=== PATIENT | female | born 1980 | race Caucasian/White ===

== ENCOUNTER 2017-03-27 12:44 | Observation (INO) | payer BC ==
[~2017-03-27] VITALS: Ht 167.6 cm; Wt 105.9 kg
[2017-03-27] MEDS ORDERED: BACTRIM 400-801 TAB PO (15:03)
[2017-03-27] MEDS ORDERED: HYDROCODON-ACE1 EAC7 PO (15:04)
[2017-03-27 15:05] VITALS: BP 107/74; Ht 167.6 cm; Wt 105.9 kg
--- NOTE | 2017-03-27 15:26 | NUR ---
PT AOX4 RESP EVEN AND NONLABORED PT C/O PAIN ON RIGHT FLANK AND ABD AT THIS TIME. SRX2 BED AT LOWEST SETTING CALL LIGHT WITHIN REACH WILL CONTINUE TO MONITOR
--- NOTE | 2017-03-27 16:03 | NUR ---
IV ACCESS-20 GAUGE INSERTED IN RIGHT HAND FOR ACCESS. KARO CORNEJO RN
[2017-03-27 16:37] LABS: BASOPHILS 0.1 % (0-2); EOSINOPHILS 0.1 % (0-7); IMMATURE GRANULOCYTES 0.2 % (0-5); LYMPHOCYTES 22.9 % (15-50); MCH 31.3 pg (26.0-34.0); MCHC 34.9 g/dL (31.0-37.0); MCV 89.6 fL (80.0-100.0); MEAN PLATELET VOLUME 9.9 fL (7.4-10.4); MONOCYTES 8.5 % (2-11); NEUTROPHILS 68.2 % (40-80); PLATELET COUNT 284 10x3/uL (130-400); RDW 12.1 % (11.5-14.5); WBC 11.4 10x3/uL (4.8-10.8)
[2017-03-27 16:58] LABS: ALBUMIN 3.9 g/dL (3.4-5.0); ANION GAP 16.5 mmol/L (8-16); BILIRUBIN - TOTAL 0.82 mg/dL (0.2-1.3); CALCIUM 9.1 mg/dL (8.5-10.1); CARBON DIOXIDE 22.5 mmol/L (21.0-32.0); CREATININE - SERUM 1.4 mg/dL (0.6-1.3); PROTEIN - SERUM 7.1 g/dL (6.4-8.2)
[2017-03-27 19:28] LABS: HCG SERUM NEGATIVE (NEGATIVE)
--- NOTE | 2017-03-27 19:28 | NUR ---
TAKEN TO OR VIA BED BY SURGERY STAFF
--- NOTE | 2017-03-27 21:05 | NUR ---
PT RETURNED TO ROOM, NO DISTRESS NOTED, FAMILY AT BEDSIDE, CL IN REACH
--- NOTE | 2017-03-27 21:21 | NUR ---
PT REFUSES SCHEDULED MEDS DUE TO BEING DISCHARGED, PRESCRIPTIONS GIVEN BY
--- NOTE | 2017-03-27 21:30 | NUR ---
PT UP TO RESTROOM TO URINATE WITH NO PROBLEMS, URINE RED TINGED, PT DENIES ANY DISCOMFORT, FALL PRECAUTIONS IN PLACE, CL IN REACH
--- NOTE | 2017-03-27 22:02 | NUR ---
CONTACTED FOR DISCHARGE ORDERS, AWAITING RETURN CALL
--- NOTE | 2017-03-27 22:12 | NUR ---
DR LEMON RETURNED CALL, STATED HE WOULD ENTER DC ORDERS
--- NOTE | 2017-03-27 22:32 | NUR ---
IV DC'D WITH CATH INTACT, NO BLEEDING NOTED, PT CHANGED INTO PERSONAL CLOTHING, TAKEN TO PRIVATE VEHICLE BY FURNITURE UPHOLSTERY MECHANIC VIA WHEELCHAIR WITH NO DISTRESS NOTED, ACCOMPANIED BY SPOUSE, PERSONAL BELONGINGS WITH PATIENT
--- NOTE | 2017-03-28 11:39 | OP ---
PATIENT NAME: DANIELLE MOORE MEDICAL RECORD: [id number] LOCATION:[id number] ADMISSION DATE:03/27/17 SURGEON: ROJELIO LEMON MD DATE OF OPERATION: 03/27/2017 SURGEON: Rojelio Lemon MD. ANESTHESIA: TIVA by Yobany Espinosa CRNA PREOPERATIVE DIAGNOSES: Right distal ureteral stone, 4 mm. POSTOPERATIVE DIAGNOSIS: Right distal ureteral stone, 4 mm. FINDINGS: Radiodense right distal ureteral stone, 4 mm. PROCEDURES: Cystoscopy, right ureteroscopy and stone extraction, right ureteral stent insertion, 5-Ukrainian x 24 cm with string attached. SPECIMENS: Right distal ureteral stone. ESTIMATED BLOOD LOSS: None. COMPLICATIONS: None. CLINICAL HISTORY: This is a 36-year-old female, who has never had any kidney stones before. Her family history is positive for kidney stones in her father. For the past 4 days, she has had right flank pain radiating to the right lower quadrant and nausea and vomiting. She does not have any fever. She went to the Emergency Room today and she had a CT scan. This showed a 4 mm stone in the right distal ureter with proximal hydroureteronephrosis. There is also a nonobstructing right 3 mm renal stone. There are some punctate left renal stones also. She comes now to have the right distal ureteral stone removed. The right renal stone which is 3 mm in size may not cause her any trouble for some time and if it does pass, the 3 mm stone should pass on fairly easily. She was already given Flomax and [place] in the Emergency Room. I do not need to give her any further medications. We gave her Ancef 2 grams IV design center consultant to the OR. She is 5 feet 6 inches in height and we are going to use a stent at 24 cm in length. DESCRIPTION OF PROCEDURE: The patient was given IV sedation. She was placed in the dorsal lithotomy position, shaved, prepped and draped. The suprapubic area was shaved on the mons pubis. A 30-degree lens was used for cystoscopy. She has single ureteral orifices on each side. No bladder tumors were seen. A Sensor wire was placed into the right ureteral orifice and pushed into the renal pelvis. Under fluoroscopy, we could see the radiodense distal right ureteral stone adjacent to the wire. A 21-Ukrainian x 4 cm ureteral dilation balloon was introduced into the right ureteral orifice. The balloon was inflated to 18 atmospheres of pressure for a few seconds and then it was fully deflated. The balloon was then entirely removed, leaving the wire in place. We then removed the cystoscope, leaving the guidewire in place. Going beside the guidewire with the rigid ureteroscope, we found the stone readily. A 4 wire basket was placed around the stone and the stone was completely removed. We then backloaded the guidewire onto the cystoscope and over the wire, the 5-Ukrainian x 24 cm ureteral stent was placed. Once the proximal end was in the renal pelvis, we removed the guidewire slowly to allow the proximal end to coil. The distal end was pushed OPERATIVE REPORT [id number] DANIELLE MOORE into the bladder using a pusher. The wire was entirely removed. The bladder was emptied through the cystoscope. The string on the distal end of the stent is maintained. It was taped to the suprapubic area with a small piece of Tegaderm. The excess length of string beyond the Tegaderm was cut off. The patient will be sent home tonight. I will see her in followup in 2 days' time to remove the ureteral stent by pulling on the string. The stone has been sent to pathology for stone analysis. TRANSINT:[id number] Voice Confirmation ID: [id number] DOCUMENT ID: [id number] ROJELIO LEMON MD at 1139 CC: [id number] DICTATION DATE: 03/27/172041 [employer] PERSON: 03/28/17 0704 DIS IN 03/27/17 [facility] [address] [place] [address]
== END 2017-03-27 22:20 | disposition home or self-care (01) ==
LOC: D.CT 12:44 → OBSVTIME 14:06 → D.MS 14:06 → D.SDCHOLD 14:06 → D.MS 14:18
PROVIDERS: Anesthesiology; ADMIT Family Medicine
DX: N13.2 Hydronephrosis with renal and ureteral calculous obstruction (principal); N20.0 Calculus of kidney; E66.9 Obesity, unspecified; Z68.37 Body mass index [BMI] 37.0-37.9, adult

== ENCOUNTER → 2017-04-03 10:27 | Outpatient (CLI) | payer BC ==
[2017-03-27 15:05] VITALS: BMI 37.7
[~2017-04-03 10:27] MED LIST: BACTRIM 400-801 TAB PO; HYDROCODON-ACE1 EAC7 PO
== END | disposition home or self-care (01) ==
LOC: D.RAD 10:27
DX: N20.0 Calculus of kidney (principal)

== ENCOUNTER → 2017-04-26 09:59 | Outpatient (CLI) | payer BC ==
[2017-03-27 15:05] VITALS: BMI 37.7
== END | disposition home or self-care (01) ==
LOC: D.LABREF 09:59
DX: N20.1 Calculus of ureter (principal)

== ENCOUNTER 2019-07-21 06:59 | Outpatient (CLI) | payer BC ==
[~2019-07-21] VITALS: Ht 167.6 cm; Wt 106.6 kg
[~2019-07-21 06:59] MED LIST changes: +FLOMAX0.4 MG PO
[2019-07-21 07:24] LABS: HEMATOCRIT 48.5 % (36.0-48.0); HEMOGLOBIN 16.5 g/dL (12-16); MCH 31.5 pg (26.0-34.0); MCV 92.7 fL (80.0-100.0); MEAN PLATELET VOLUME 9.4 fL (7.4-10.4); RBC 5.23 10x6/uL (4.00-5.40); RDW 12.3 % (11.5-14.5); WBC 7.3 10x3/uL (4.8-10.8)
[2019-07-21 08:00] VITALS: BP 112/68; Ht 167.6 cm; Wt 106.6 kg
[2019-07-21 08:06] LABS: HCG URINE NEGATIVE (NEGATIVE)
--- NOTE | 2019-07-21 11:53 | NUR ---
1132 PT RETURNED TO ROOM 2506 FROM SURGERY HOLDING AREA. PT STATES THAT DR LEMON TOLD HER THERE WAS NOT A STONE BASED ON HER KUB AND SURGERY WAS BEING CANCELLED.
--- NOTE | 2019-07-21 11:55 | NUR ---
[address] LEMON THAT SURGERY IS CANCELLED AND SHE IS TO BE DISCHARGED HOME. DISCHARGE INSTRUCTIONS RECEIVED FROM DR LEMON.
--- NOTE | 2019-07-21 11:56 | NUR ---
1147 IV DC'D. CATHETER TIP INTACT. NO BLEEDING AT SITE. BANDAID APPLIED.
== END 2019-07-21 11:58 | disposition home or self-care (01) ==
LOC: D.OPS 06:59 → D.PAN 11:30 → EDSTATUS 11:30 → D.OPS 11:58
PROVIDERS: Anesthesiology; ATTEND Urology
DX: N20.1 Calculus of ureter (principal)

== ENCOUNTER → 2019-11-11 23:36 | Outpatient (CLI) | payer BC ==
[2019-07-21 08:00] VITALS: BMI 38.0
== END | disposition home or self-care (01) ==
LOC: D.LABREF 23:36
PROVIDERS: ATTEND Urology
DX: R31.9 Hematuria, unspecified (principal); R82.90 Unspecified abnormal findings in urine